=== PATIENT | female | born 1960 | race Caucasian/White ===

== ENCOUNTER 2016-12-02 20:46 | Emergency (ER) | payer SELFPAY ==
[~2016-12-02] VITALS: Ht 162.6 cm; Wt 64.0 kg
[2016-12-02 21:04] VITALS: BP 134/84
--- NOTE | 2016-12-02 22:15 | NUR ---
PATIENT LEFT WITHOUT BEING SEEN BY DR. GARCÍA. NO FURTHER CARE PROVIDED FOR PATIENT.
== END 2016-12-02 22:15 | disposition left against medical advice (07) ==
LOC: MED 20:46
DX: R07.89 Other chest pain (principal); Z53.21 Procedure and treatment not carried out due to patient leaving prior to being seen by health care provider
CPT/HCPCS: 93005

== ENCOUNTER 2017-06-21 20:56 | Emergency (ER) | payer SELFPAY ==
--- NOTE | 2017-06-21 21:05 | NUR ---
PATIENT CALLED TO BE TRIAGE, NO RESPONSE. PATIENT LEFT WITHOUT BEING SEEN BY DR. GARCÍA. NO FURTHER CARE PROVIDED FOR PATIENT.
== END 2017-06-21 21:05 | disposition left against medical advice (07) ==
LOC: MED 20:56
DX: F41.9 Anxiety disorder, unspecified (principal); Z53.21 Procedure and treatment not carried out due to patient leaving prior to being seen by health care provider

== ENCOUNTER 2017-07-20 20:52 | Emergency (ER) | payer OTHER ==
[~2017-07-20] VITALS: Ht 157.5 cm; Wt 63.2 kg
[2017-07-20 21:01] VITALS: BP 118/74
--- NOTE | 2017-07-20 21:05 | NUR ---
EKG DONE. URINE SAMPLE COLLECTED.
[2017-07-20] MEDS ORDERED: NITROGLYCERIN 2% 1 GM PKT TP ONE (21:25)
[2017-07-20] MEDS ORDERED: MORPHINE SULFATE 4 MG/ML SYR IVP ONE (21:25)
--- NOTE | 2017-07-20 21:27 | NUR ---
PT TAKEN TO BED 3
--- NOTE | 2017-07-20 21:37 | NUR ---
Pt came to ed c/o chest pain and sob that was occuring earlier in the afternoon, according to Pt. Pt currently vss. At this time Pt denies sob or chest pain. ER MD at bedside. Continue to monitor.
--- NOTE | 2017-07-20 21:52 | NUR ---
Patient being evaluated by physician at bedside.
[2017-07-20 21:53] LABS: BASOPHILS # (AUTO) 0.2 K/uL (0.00-0.22); BASOPHILS % (AUTO) 1.8 % (0.0-2.0); EOSINOPHILS # (AUTO) 0.1 K/uL (0-0.4); EOSINOPHILS % (AUTO) 1.6 % (0.0-4.0); HEMATOCRIT 42.3 % (36-48); HEMOGLOBIN 14.1 g/dL (12.0-16.0); LYMPHOCYTES # (AUTO) 1.9 K/uL (2.5-16.5); LYMPHOCYTES % (AUTO) 21.1 % (20.5-51.1); MEAN CORPUSCULAR HEMOGLOBIN 28 pg (27-31); MEAN CORPUSCULAR HGB CONC 33 g/dL (33-37); MEAN CORPUSCULAR VOLUME 83 fL (80-94); MONOCYTES # (AUTO) 0.3 K/uL (0.8-1.0); MONOCYTES % (AUTO) 3.7 % (1.7-9.3); NEUTROPHILS # (AUTO) 6.5 K/uL (1.8-7.7); NEUTROPHILS % (AUTO) 71.8 % (42.2-75.2); PLATELET COUNT (AUTO) 275 K/uL (140-450); RED BLOOD CELL COUNT(AUTO) 5.08 MIL/uL (4.20-5.40); RED CELL DISTRIBUTION WIDTH 12.7 % (11.6-13.7)
--- NOTE | 2017-07-20 22:01 | NUR ---
Patient discharged with v/s stable by Dr. Calvo. Written and verbal after care instructions given and explained. Patient verbalized understanding. Ambulatory with steady gait. All questions addressed prior to discharge. Advised to follow up with PMD.
[2017-07-20 22:31] VITALS: BP 118/74
== END 2017-07-20 22:01 | disposition home or self-care (01) ==
LOC: MED 20:52
DX: F41.9 Anxiety disorder, unspecified (principal); R94.31 Abnormal electrocardiogram [ECG] [EKG]; Z90.710 Acquired absence of both cervix and uterus; Z90.49 Acquired absence of other specified parts of digestive tract; Z90.89 Acquired absence of other organs
CPT/HCPCS: 36415; 85025; 93005; 99285; J2270

== ENCOUNTER 2020-06-28 06:34 | Day surgery (SDC) | payer OTHER, SELFPAY ==
[~2020-06-28] VITALS: Ht 162.6 cm; Wt 59.0 kg
[2020-06-28] MEDS ORDERED: fentaNYL citrate 0.05 MG/ML VIAL ONE (08:49)
[2020-06-28] MEDS ORDERED: LIDOCAINE 2% 100 MG/5 ML UJET TP ONE (08:49)
[2020-06-28] MEDS ORDERED: MIDAZOLAM 5 MG/5 ML VIAL ONE (08:49)
[2020-06-28] MEDS ORDERED: fentaNYL citrate 0.05 MG/ML VIAL IVP ONE (10:35)
[2020-06-28] MEDS ORDERED: MIDAZOLAM 2 MG/2 ML VIAL IVP ONE (10:35)
== END 2020-06-28 10:44 | disposition home or self-care (01) ==
LOC: MDS 06:34 → MFCC 07:07 → MDS 10:44
PROVIDERS: ATTEND Internal Medicine Gastroenterology
DX: Z12.11 Encounter for screening for malignant neoplasm of colon (principal); K57.30 Diverticulosis of large intestine without perforation or abscess without bleeding; K29.70 Gastritis, unspecified, without bleeding; K21.00 Gastro-esophageal reflux disease with esophagitis, without bleeding; Z90.49 Acquired absence of other specified parts of digestive tract; Z90.710 Acquired absence of both cervix and uterus; Z90.89 Acquired absence of other organs; Z79.899 Other long term (current) drug therapy; Z20.828 Contact with and (suspected) exposure to other viral communicable diseases
CPT/HCPCS: 36415; 43239; 45378; 86677; J2250; J3010; U0003

== ENCOUNTER 2022-11-18 20:04 | Emergency (ER) | payer OTHER ==
[~2022-11-18] VITALS: Ht 160 cm; Wt 63.5 kg
[2022-11-18 20:05] VITALS: BP 118/78
--- NOTE | 2022-11-18 20:08 | NUR ---
to lobba/w bed ambulatory
[2022-11-18 20:10] VITALS: BP 118/78
[2022-11-18 20:38] LABS: APPEARANCE,URINE CLEAR (CLEAR); BILIRUBIN,URINE NEGATIVE (NEGATIVE); BLOOD, URINE NEGATIVE (NEGATIVE); COLOR,URINE YELLOW (YELLOW); LEUKOCYTE ESTERASE ,URINE TRACE (NEGATIVE); NITRITE, URINE NEGATIVE (NEGATIVE); PH,URINE 6.5 (5.0-9.0); UGLUCOSE NEGATIVE (NEGATIVE)
[2022-11-18 20:48] LABS: RBC,URINE 0-5 /HPF (0-5)
--- NOTE | 2022-11-18 22:19 | NUR ---
PT CALLED IN LOBBY AND OUTSIDE WITH NO ANSWER.
--- NOTE | 2022-11-18 22:19 | NUR ---
PATIENT LEFT WITHOUT BEING SEEN BY DR. Haro. NO FURTHER CARE PROVIDED FOR PATIENT.
--- NOTE | 2022-11-18 22:55 | NUR ---
PT CALLED IN LOBBY AND OUTSIDE WITH NO ANSWER x2. PT LWBS
--- NOTE | 2022-11-18 23:00 | NUR ---
called for thr third time no response
== END 2022-11-18 22:19 | disposition left against medical advice (07) ==
LOC: MED 20:04
DX: R51.9 Headache, unspecified (principal); Z53.21 Procedure and treatment not carried out due to patient leaving prior to being seen by health care provider
CPT/HCPCS: 81001; 99281